=== PATIENT | female | born 1980 | race Asian ===

== ENCOUNTER 2023-11-26 21:53 | Emergency (ER) | payer BC ==
[2023-11-26 21:57] VITALS: BP 108/71; PULSE 58; RESP 20; TEMP 98.2; BMI 24.2
[2023-11-26] MEDS ORDERED: diphenhydrAMINE HCL 25 MG CAPSULE (FP) PO ONE (22:50)
[2023-11-26] MEDS ORDERED: FAMOTIDINE 20 MG TABLET ONE (22:50)
[2023-11-26] MEDS ORDERED: DEXAMETHASONE 4 MG TABLET (FP) ONE (22:51)
[2023-11-26] MEDS ORDERED: ACETAMINOPHEN 500 MG TABLET (FP) ONE (22:52)
[2023-11-26] MEDS: FAMOTIDINE 10 MG TABLET PO ONE (22:55)
[2023-11-26] MEDS: DEXAMETHASONE 4 MG TABLET (FP) PO ONE (22:56)
[2023-11-26] MEDS: ACETAMINOPHEN 500 MG TABLET (FP) PO ONE (22:56)
[2023-11-26] MEDS: diphenhydrAMINE HCL 25 MG CAPSULE (FP) PO ONE (23:04)
[2023-11-27] MEDS ORDERED: EPINEPHrine/PF 1 MG/1 ML (1:1,000) AMPULE ONE (01:11)
[2023-11-27] MEDS: EPINEPHrine 1:1,000 1,000 MCG/ML ML SQ ONE (01:22)
== END 2023-11-27 02:48 | disposition home or self-care (01) ==
LOC: JER 21:53
DX: L50.0 Allergic urticaria (principal); R19.7 Diarrhea, unspecified; T78.1XXA Other adverse food reactions, not elsewhere classified, initial encounter; R10.84 Generalized abdominal pain
CPT/HCPCS: 99283-25